=== PATIENT | female | born 1935 | race Caucasian/White ===

== ENCOUNTER 2020-05-13 08:23 | Outpatient (CLI) | payer MEDICARE, SELFPAY ==
--- NOTE | ~2020-05-13 | US_ITS ---
US abdomen complete EXAMINATION: US Abdomen Complete INDICATION: Secondary thrombocytopenia. PROCEDURE: Realtime High Resolution abdomen ultrasound. COMPARISON: Ultrasound dated 09/26/2000 FINDINGS: Gallbladder within normal limits. No gallstones, pericholecystic fluid, gallbladder wall t hickening or biliary dilatation. Common bile duct measures 4 mm. Liver echotexture within normal limits without focal mass. Pancreas within normal limits. Pancreati c tail is obscured by bowel gas. Spleen is unremarkeable. There is an echogenic focus in the right k idney measuring 8 x 7 x 6 mm with internal vascularity. No significant posterior features. Left renal echotexture is normal. Right kidney measures 8.7 cm. Left kidney measures 9.2 cm. Visualized aspects of the aorta and IVC are within normal limits. Portal vein is patent. No sonograph ic Pacheco's sign indicated by the technologist. IMPRESSION: 1: Echogenic right renal mass measuring 8 mm with associated internal vascularity. Correlation with c ontrast-enhanced CT without and with IV contrast recommended. Reviewed, dictated and finalized at location A. IMPRESSION: 1: Echogenic right renal mass measuring 8 mm with associated internal vasculari ty. Correlation with contrast-enhanced CT without and with IV contrast recommen ded.
== END 2020-05-13 08:24 | disposition home or self-care (01) ==
LOC: ANHIMG 08:36
PROVIDERS: PCP Family Medicine; Visit Provider Internal Medicine Hematology & Oncology
DX: D69.59 Other secondary thrombocytopenia (principal)
CPT/HCPCS: 76700

== ENCOUNTER 2020-08-15 08:29 | Outpatient (CLI) | payer MEDICARE, SELFPAY ==
--- NOTE | ~2020-08-15 | DEXA_ITS ---
Bone Density Report Name: Cristiana Rosa I Age: 85 Sex: Female Ethnicity: White Date of : 1935 Indication: postmenopausal; height loss; Referring Provider: Seun Horvath Study: Bone densitometry was performed. Exam Date: August 15, 2020 Accession number: [id number] Bone Density: Region BMD T-score Z-score Classification AP Spine (L1, L2) 0.813 -1.5 1.1 Osteopenia Femoral Neck (Left) 0.543 -2.8 -0.3 Osteoporosis Total Hip (Left) 0.597 -2.8 -0.6 Osteoporosis Total Hip Bilateral Avg 0.607 -2.8 -0.5 Osteoporosis Femoral Neck (Right) 0.610 -2.2 0.3 Osteopenia Total Hip (Right) 0.617 -2.7 -0.4 Osteoporosis World Health Organization criteria for BMD impression classify patients as: Normal (T-score at or above -1.0), Osteopenia (T-score between -1.0 and -2.5), or Osteoporosis (T-score at or below -2.5). 10-year Fracture Risk: FRAX not reported because: Some T-score for Spine Total or Hip Total or Femoral Neck at or below -2.5 Clinical Information Provided by Patient: Has used the following medications: Fosamax (i.e. alendronate), Vitamin D Patient maximum height was 66 Menopause Age: 52 Does not regularly consume dairy products Drinks caffeinated beverages Onset of menses at age 18 Number of children 2 Impression: The patient has osteoporosis, based on the Left Total Hip T-score. Discussion: INCREASED RISK OF FRACTURE. BONE DENSITY IS UNDESIRABLY LOW AT ONE OR MORE SKELETAL SITES, CONSISTENT WITH POSTMENOPAUSAL OSTEOPOROSIS. This patient's lowest T-score meets the World Health Organization's (WHO) criteria for osteoporosis at one or more sites (T-score -2.5 or below). In untreated patients, the risk of osteoporotic fracture increases approximately two-fold for each 1.0 SD decrease in T-score. Low bone density is not the only risk factor for fracture; also consider factors such as patient's age, frailty or poor health, risk of falling, risk of injury, previous osteoporotic fracture, family history of osteoporosis, cigarette smoking, low body weight, etc. Not everyone with low bone mineral density has osteoporosis; osteomalacia and other metabolic bone disorders should also be considered. Patients who have osteoporosis should be evaluated for specific diseases and conditions (secondary causes) that may cause or contribute to bone loss. The [place] [employer] Endocrinologists (AACE) and National Osteoporosis Foundation (NOF) recommend pharmacologic intervention for all postmenopausal women whose T-score is in this range. The patient should follow a healthful lifestyle (good nutrition with adequate calcium and vitamin D, and appropriate weight-bearing exercise). Follow-Up: Consider a repeat BMD and Vertebral Fracture Assessment (VFA) exam in 2 years or sooner if medically necessary, to reassess this pa
--- NOTE | ~2020-08-15 | CT_ITS ---
EXAMINATION: CT abdomen pelvis wo/w con EXAM DATE: 08/15/2020 09:14 INDICATION: Right renal mass. TECHNIQUE: Spiral CT of the abdomen without contrast followed by both abdomen and pelvis with 100 cc intravenous Omnipaque 350. Axial, coronal and sagittal images were reviewed. The dose-length produc t (DLP) for this examination was 403.17 mGy-cm. The exposure was tailored according to patient size (auto mA exposure control), and iterative reconstruction (ASIR) was used as additional dose reduction technique. Correlation is made to abdominal ultrasound 05/13/2020. FINDINGS: The liver, spleen, adrenal glands and pancreas are unremarkable. Gallbladder is unremarkab le. No biliary obstruction. Several right kidney stones up to 4 mm in size, couple of which are cont iguous to each other in one calyx. Correlating with the prior ultrasound, there was some shadowing an d twinkle artifact deep to the echogenic right kidney region which was measured, could've been caused by these 2 stones. There is no hydronephrosis or suspicious renal lesion. There is 6 mm cyst in the superior pole of the right kidney. The uterus is unremarkable. The bladder is collapsed at time of imaging limiting evaluation. There is no retroperitoneal or pelvic lymphadenopathy. There is mild scattered arteriosclerotic disease. The appendix is not positively visualized. There is no pericecal inflammatory change to suggest appe ndicitis. There is mild to moderate sigmoid predominant colonic diverticulosis. There is no adjacent inflammatory change to suggest diverticulitis. The stomach and small bowel are unremarkable. There is expected amount of colonic stool. No free intraperitoneal gas. Heart is normal in size. There are leads from cardiac pacemaker/AICD device. Breast implants. The lung bases are unremarkable. The re is mild to moderate chronic appearing L3 burst fracture with 5 mm retropulsion at the superior end plate. IMPRESSION: 1. Right nephrolithiasis, likely accounting for the abnormal ultrasound finding reported. No suspici ous findings. 2. Mild to moderate colonic diverticulosis. 3. Chronic appearing L3 burst fracture. Reviewed, dictated and finalized at location B. ULAR OFFICER IMPRESSION: 1. Right nephrolithiasis, likely accounting for the abnormal ultrasound findin g reported. No suspicious findings. 2. Mild to moderate colonic diverticulosis. 3. Chronic appearing L3 burst fracture.
[2020-08-15 09:08] LABS: Estimated Glomerular Filt Rate > 60
== END 2020-08-15 08:30 | disposition home or self-care (01) ==
PROVIDERS: PCP Family Medicine; Visit Provider Internal Medicine Hematology & Oncology
DX: N20.0 Calculus of kidney (principal); K57.30 Diverticulosis of large intestine without perforation or abscess without bleeding; M80.08XD Age-related osteoporosis with current pathological fracture, vertebra(e), subsequent encounter for fracture with routine healing; M85.88 Other specified disorders of bone density and structure, other site
CPT/HCPCS: 74178; 77080; Q9967

== ENCOUNTER 2022-09-22 11:27 | Emergency (ER) | payer MEDICARE, SELFPAY ==
[2022-09-22] VITALS (10 sets, daily range): BP systolic 109–160; BP diastolic 60–90; PULSE 60–68; RESP 9–17; TEMP 36.4; O2SAT 97–100
--- NOTE | ~2022-09-22 | CT_ITS ---
EXAMINATION: CT brain wo con DATE: 09/22/2022 17:48 INDICATION: tremor . TECHNIQUE: Computed tomography (CT) of the head was performed without intravenous contrast. The mA wa s adjusted according to patient size. Iterative reconstruction technique was employed. The dose-lengt h product was 605.33 mGy-cm. COMPARISON: 04/04/2013. FINDINGS: No acute intracranial hemorrhage or extra-axial fluid collection. No hydrocephalus, mass, or herniation. No acute ischemic infarct. Unremarkable dural venous sinus attenuation. No acute osseous abnormality. Trace left mastoid fluid, the remaining aerated spaces are clear. Moderate atrophy and chronic white matter change. Atherosclerotic intracranial calcification. Bilater al lens replacements. IMPRESSION: No acute intracranial process. Reviewed, dictated and finalized at location K. A THERAPIST
--- NOTE | ~2022-09-22 | XR_ITS ---
EXAMINATION: XR chest 2V DATE: 09/22/2022 12:50 INDICATION: Weakness. TECHNIQUE: Frontal and lateral views of the chest were obtained. COMPARISON: Chest 2 views 03/18/10, CT abdomen and pelvis 08/15/2020 FINDINGS: There is mild scarring at the lung apices. No pleural effusion or pneumothorax. The heart s ize is normal. There is a left chest pacer with leads in right atrium, right ventricle, and coronary sinus. Pectus excavatum is noted. IMPRESSION: 1. Mild scarring at the lung apices. Reviewed, dictated and finalized at location A. CTOR OF ENROLLMENT
--- NOTE | 2022-09-22 11:52 | ECG_ITS ---
Measurements Intervals Ocate Rate: 60 P: 125 SD: 138 QRS: 134 QRSD: 132 T: 40 QT: 471 QTc: 471 Interpretive Statements ELECTRONIC ATRIAL PACEMAKER ELECTRONIC VENTRICULAR PACEMAKER ABNORMAL RHYTHM ECG NO PREVIOUS ECG AVAILABLE FOR COMPARISON Electronically Signed On 09-22-2022 15:14:10 COPY READER by Víctor Hendricks M.D.
[2022-09-22 17:17] LABS: Hematocrit 40.6 % (37.0-47.0); Hemoglobin 13.5 g/dL (12.0-15.0); Immature Platelet Fraction Pct 5.3 % (0.9-11.2); Mean Corpuscular HGB Conc 33.3 g/dl (32-36); Mean Corpuscular Hemoglobin 32.5 pg (26-34); Mean Corpuscular Volume 97.6 fl (80-100); Mean Platelet Volume 10.5 fl (7.4-10.4); Platelet Count Result 93 k/mm3 (150-375); Red Blood Count 4.16 M/mm3 (4.2-5.4); Red Cell Distribution Width 13.3 % (11.5-14.5); White Blood Count 5.1 K/mm3 (4.5-10.0)
[2022-09-22 17:32] LABS: Alanine Aminotransferase 17 U/L (6-35); Albumin Level 3.8 g/dL (3.5-5.1); Alkaline Phosphatase 40 U/L (38-126); Anion Gap 2 mmol/L (8-16); Aspartate Amino Transferase 26 U/L (14-36); Bilirubin,Total 0.7 mg/dL (0.2-1.3); Blood Urea Nitrogen 11 mg/dL (7-17); Calcium 8.3 mg/dL (8.4-10.2); Carbon Dioxide 32 mmol/L (22-30); Chloride 100 mmol/L (98-107); Estimated CRCL calculation 36 ml/min; Estimated Glomerular Filt Rate > 60; Glucose 99 mg/dL (65-110); Potassium 3.7 mmol/L (3.4-5.0); Sodium 134 mmol/L (137-145)
[2022-09-22 18:11] LABS: Appearance Urine Clear (Clear); Bilirubin Urine 1+ (Negative); Blood Urine 2+ (Negative); Color Urine Yellow (Yellow); Glucose Urine UA Negative (Negative); Ketones Urine 1+ mg/dL (Negative); Leukocyte Esterase Ur 2+ LEU/UL (Negative); Nitrate Urine Negative (Negative); Protein Urine 1+ mg/dL (Negative)
[2022-09-22 18:24] LABS: Mucus Urine Rare /lpf; RBC Urine 21-50 /hpf (0-2); Squamous Epithelial Cell Urine Few /hpf (Few)
[2022-09-22 18:31] LABS: Add Urine Microscopic? YES
[2022-09-22 18:44] LABS: Eosinophils Absolute Manual 0.05 K/mm3 (0.02-0.5); Eosinophils Percent Manual 1 % (0-4); Lymphocytes Absolute Manual 2.29 K/mm3 (1.1-4.5); Monocytes Absolute Manual 0.76 K/mm3 (0.1-0.90); Monocytes Percent Manual 15 % (3-9); Neutrophils Percent Manual 39 % (46-73); Schistocytes None Seen (NORMAL); Total Cells Counted 100
--- NOTE | 2022-09-22 18:47 | ED.GENADULT ---
HPI - General Adult General Chief complaint: Weakness Stated complaint: increased tremors Time Seen by Provider: 09/22/22 16:30 History of Present Illness HPI narrative: 87-year-old female presenting to the emergency department for evaluation of increased tremor. Patient's son states that the patient does have baseline tremor but over the last few days the tremor has increased. Patient has no prior diagnosis of Parkinson's disease. Patient is denying complaints at this time. Patient is resting comfortably and son states that her current tremor is similar to her baseline. Last night when she was eating she was having so much difficulty that he needed to assist her. Related Data Home Medications Medication Instructions Recorded Confirmed Beet 605 mg PO DAILY 08/31/20 11/25/21 fexofenadine-pseudoephedrine ER 1 tablet PO QAM 08/31/20 11/25/21 180 mg-240 mg tablet,ext.release 24 hr ([employer] D 24 Hour) mecobalamin (vitamin B12) 1,000 1,000 mcg PO EVERY OTHER DAY 08/31/20 11/25/21 mcg chewable tablet (B12 Active) sertraline 25 mg tablet 25 mg PO DAILY 08/31/20 11/25/21 turmeric 400 mg capsule 400 mg PO DAILY 08/31/20 11/25/21 ascorbic acid (vitamin C) 500 mg 500 mg PO DAILY 10/19/20 11/25/21 capsule brinzolamide 1 %-brimonidine 0.2 % 1 drp ophthalmic (eye) TID 10/19/20 11/25/21 eye drops,suspension (Simbrinza) donepezil 5 mg tablet 5 mg PO ONCE 10/19/20 11/25/21 famotidine 20 mg tablet 20 mg PO DAILY 10/19/20 11/25/21 olopatadine 0.1 % eye drops 1 drp ophthalmic (eye) BID 10/19/20 11/25/21 (Pataday Twice Daily Relief) zinc sulfate 66 mg tablet (Zinc-15) 66 mg PO DAILY 10/19/20 11/25/21 Allergies Allergy/AdvReac Type Severity Reaction Status Date / Time Cephalosporins Allergy Mild unknown Verified 11/25/21 14:50 metronidazole Allergy Mild unknown Verified 11/25/21 14:50 Penicillins Allergy Mild unknown Verified 11/25/21 14:50 Sulfa (Sulfonamide Allergy Mild unknown Verified 11/25/21 14:50 Antibiotics) Review of Systems Review of Systems: CONSTITUTIONAL: Denies fever, chills, or sweats. EYES: Denies visual changes, redness, or discharge. ENT: Denies rhinorrhea, congestion, sore throat, or otalgia. CARDIOVASCULAR: Denies chest pain, palpitations, or edema. RESPIRATORY: Denies cough or dyspnea. GASTROINTESTINAL: Denies abdominal pain, nausea, vomiting, or diarrhea. GENITOURINARY: Denies dysuria or hematuria. SKIN: Denies rash or itching. MUSCULOSKELETAL: Denies back pain, joint pain, or myalgia. NEUROLOGIC: See HPI PSYCHIATRIC: Denies anxiety or depression. [facility] Family History Family History Mother Family history of heart disease in male family member before age 55 Family history of cardiovascular disease Sibling Family history of malignant neoplasm of breast Family history of lymphoma Family history of malignant neoplasm of ovary Social History Social History (Updated 10/19/20 @ 14:41 by Camryn Rudolph) Social History: Smoking status: Never smoker Second hand tobacco smoke exposure: No Alcohol intake: never Substance use: never Substance use type: does not use Gender identity (if verbalized by the patient): Female Sexual Orientation (if Verbalized by the Patient): Straight or Heterosexual Spiritual care concerns: No (Episcopalian) Exam Narrative: APPEARANCE: Well appearing, no pain, no distress, well-nourished. HEAD: normocephalic, atraumatic. EYES: PERRLA/EOMI, conjunctivae clear. NOSE: Normal no drainage EARS:TMS clear with good light reflex. THROAT: Pharynx clear, no exudate. NECK: Supple. No adenopathy, no masses. RESPIRATORY: Airway patent, respirations nonlabored. Clear to auscultation bilaterally, no rales, rhonchi, wheezing. CARDIOVASCULAR: Regular rate and rhythm without murmurs rubs or gallops. ABDOMINAL: Soft, nontender, nondistended, normal bowel sounds MUSCULOSKELETAL: Moves all extremities. Strength
--- NOTE | 2022-09-22 19:16 | PC.NURSE ---
Assumed care of pt at this time.
[2022-09-22] MEDS: levoFLOXacin 750 MG TABLET PO (19:37)
[2022-09-22 20:15] LABS: Influenza A QL RT-PCR Negative (Negative); Influenza B QL RT-PCR Negative (Negative); SARS-CoV-2 RNA PCR Negative
== END 2022-09-22 19:16 ==
PROVIDERS: Emergency Provider Emergency Medicine; PCP Nurse Practitioner Family
DX: R25.1 Tremor, unspecified (principal); N39.0 Urinary tract infection, site not specified; Z20.822 Contact with and (suspected) exposure to COVID-19
CPT/HCPCS: 36415; 70450; 71046; 80053; 81001; 85025; 85055; 87086; 87636; 93005; 99284; A9270

== ENCOUNTER 2023-03-05 14:07 | Outpatient (CLI) | payer MEDICARE, SELFPAY ==
--- NOTE | ~2023-03-05 | DEXA_ITS ---
Bone Density Report Name: LORRAINE MENDEZ I Age: 88 Sex: Female Ethnicity: White Date of : 1935 Indication: postmenopausal osteoporosis; Referring Provider: TERRI SANTOS Study: Bone densitometry was performed. Exam Date: March 05, 2023 Accession number: [id number] Bone Density: Region BMD T-score Z-score Classification AP Spine(L1, L2) 0.857 -1.1 1.6 Osteopenia Femoral Neck (Left) 0.583 -2.4 0.1 Osteopenia Total Hip (Left) 0.687 -2.1 0.2 Osteopenia Femoral Neck (Right) 0.586 -2.4 0.2 Osteopenia Total Hip (Right) 0.653 -2.4 0.0 Osteopenia Total Hip Mean 0.670 -2.3 0.1 Osteopenia World Health Organization criteria for BMD impression classify patients as: Normal (T-score at or above -1.0), Osteopenia (T-score between -1.0 and -2.5), or Osteoporosis (T-score at or below -2.5). 10-year Fracture Risk(1): Major Osteoporotic Fracture 15% Hip Fracture 5.3% Reported Risk Factors: [place] (), Neck BMD=0.583, BMI=20.6 (1) FRAX(R) Version 3.08. Fracture probability calculated for an untreated patient. Fracture probability may be lower if the patient has received treatment. Previous Exams: Region Exam Age BMD T-score BMD Change BMD Change Date g/cm2 vs Baseline vs Previous AP Spine (L1-L2) 03/05/2023 88 0.857 -1.1 0.044 (5.4%)* 0.044 (5.4%)* 08/15/2020 85 0.813 -1.5 Total Hip(Left) 03/05/2023 88 0.687 -2.1 0.089 (15.0%)* 0.089 (15.0%)* 08/15/2020 85 0.597 -2.8 Total Hip(Right) 03/05/2023 88 0.653 -2.4 0.036 (5.8%)* 0.036 (5.8%)* 08/15/2020 85 0.617 -2.7 *Denotes significance at 95% confidence level, LSC for AP Spine = 0.022 g/cm2, LSC for Total Hip = 0.027 g/cm2 Clinical Information Provided by Patient: Patient maximum height was 65 Menopause Age: 52 No regular weight bearing exercise Does not regularly consume dairy products Onset of menses at age 16 Number of children 2 Impression: The patient has low bone mass, based on the Right Total Hip T-score. The patient has an estimated ten-year risk of hip fracture of 5.3% and an estimated ten-year risk of major fracture of 15%, based on the WHO FRAX algorithm. No significant bone loss was observed. Discussion: BONE DENSITY IS LOW AT ONE OR MORE SKELETAL SITES. THE PATIENT'S BMD AND CLINICAL RISK FACTORS CONTRIBUTE TO THIS PATIENT'S INCREASED RISK OF FRACTURE. This patient's lowest T-score is low at one or more skeletal sites. It meet
== END 2023-03-05 14:08 | disposition home or self-care (01) ==
PROVIDERS: PCP Nurse Practitioner Family; Visit Provider Internal Medicine Hematology & Oncology
DX: M81.0 Age-related osteoporosis without current pathological fracture (principal); M85.89 Other specified disorders of bone density and structure, multiple sites
CPT/HCPCS: 77080

== ENCOUNTER 2024-06-11 08:30 | Emergency (ER) | payer MEDICARE, SELFPAY ==
--- NOTE | ~2024-06-11 | XR_ITS ---
XR lumbar spine 2-3V 06/11/2024 09:58 Indication: Back pain after fall Procedure: 3 views lumbar spine Comparison: No prior studies for comparison. Findings: There is an age-indeterminate superior endplate compression fracture of L3 with approximate ly 20% loss of vertebral body height. There is disc narrowing at L5-S1. There is disc narrowing at L2 -3. There is lower lumbar facet hypertrophy. Impression: 1: Age-indeterminate superior endplate compression fracture of L3. Reviewed, dictated and finalized at location B. Impression: 1: Age-indeterminate superior endplate compression fracture of L3.
--- NOTE | ~2024-06-11 | CT_ITS ---
EXAMINATION: CT brain wo con DATE: 06/11/2024 09:31 INDICATION: Status post fall. Head trauma. TECHNIQUE: Computed tomography (CT) of the head was performed without intravenous contrast. The dose- length product was 605.33 mGy-cm. Automated exposure control and iterative reconstruction technique were employed. COMPARISON: CT dated 09/22/2022 FINDINGS: Generalized brain parenchymal atrophy. There are scattered mild periventricular and subcort ical white matter changes, most likely related to small vessel ischemic disease (microangiopathy). No ventriculomegaly or midline shift. There is intracranial atherosclerosis. No acute infarction, hemor rhage, mass or mass effect. Paranasal sinuses and mastoids are pneumatized. No depressed skull fractu res. Midline sagittal images are unremarkable. IMPRESSION: 1. No acute intracranial abnormality. Reviewed, dictated and finalized at location B.
--- NOTE | ~2024-06-11 | XR_ITS ---
[XR ribs LT 2V w CXR 2V ] INDICATION: Left rib pain after fall TECHNIQUE: Frontal projection of the upper left ribs, frontal projection of the lower left ribs, obli que projection of all the left ribs, frontal inspiratory chest x-ray for interpretation. FINDINGS: There are no displaced rib fractures identified. There are no soft tissue abnormality see n. The lungs are clear. Pacemaker lead battery pack overlies the left upper chest limiting evaluati on for underlying ribs. IMPRESSION: 1:No acute displaced rib fractures. Reviewed, dictated and finalized at location B.
[2024-06-11 08:30] VITALS: BP 149/96; PULSE 71; RESP 14; TEMP 36.4; O2SAT 100
--- NOTE | 2024-06-11 08:55 | PC.NURSE ---
Rn called [facility] and spoke to Mary BRISCOE and requested pt code status and code forms be faxed to this hospital
--- NOTE | 2024-06-11 09:39 | ED.FALL ---
HPI - Fall General Chief Complaint: Fall Stated Complaint: fall Time Seen by Provider: 06/11/24 08:36 History of Present Illness HPI Narrative: Patient is an 89-year-old female who presents ER for evaluation after a fall. Patient has dementia is unable to provide any history. She does report that she has some pain in her low back and her left posterior ribs. There is no bruising to the area. Patient is not on any blood thinners. Related Data Home Medications Medication Instructions Recorded Confirmed buspirone 15 mg tablet 15 mg PO DAILY 06/11/24 06/11/24 carboxymethyl 0.5 %-glycerin 1 See Rx Instructions .Route .COMPLEX 06/11/24 06/11/24 %-polysorb 80 0.5 %-PF eye dropperette (Refresh Optive Ciro-3 (PF)) donepezil 10 mg tablet 10 mg PO HS 06/11/24 06/11/24 montelukast 10 mg tablet 10 mg PO HS 06/11/24 06/11/24 potassium chloride 10 mEq 10 meq PO DAILY 06/11/24 06/11/24 tablet,extended release(part/cryst) propranolol 10 mg tablet 10 mg PO BID 06/11/24 06/11/24 trazodone 50 mg tablet 50 mg PO HS 06/11/24 06/11/24 Allergies Allergy/AdvReac Type Severity Reaction Status Date / Time Cephalosporins Allergy Mild unknown Verified 06/11/24 08:39 metronidazole Allergy Mild unknown Verified 06/11/24 08:39 Penicillins Allergy Mild unknown Verified 06/11/24 08:39 Sulfa (Sulfonamide Allergy Mild unknown Verified 06/11/24 08:39 Antibiotics) cefprozil [From Cefzil] Allergy Unknown Verified 06/11/24 08:58 clindamycin Allergy Unknown Verified 06/11/24 08:58 niacin Allergy Unknown Verified 06/11/24 08:58 raloxifene [From Evista] Allergy Unknown Verified 06/11/24 08:58 Review of Systems Review of Systems: ROS unobtainable: Yes unobtainable due to mental status PMFSH Past Medical History Medical History (Updated 06/11/24 @ 11:20 by Brody Roberson MD) Anxiety Dementia Fuchs' corneal dystrophy Herpes zoster without complication History of atrial fibrillation Neuropathy Pacemaker Spinal stenosis of thoracic region Surgical History Surgical History (Updated 06/11/24 @ 09:41 by Brody Roberson MD) History of prior ablation treatment Family History Family History Mother Family history of heart disease in male family member before age 55 Family history of cardiovascular disease Sibling Family history of malignant neoplasm of breast Family history of lymphoma Family history of malignant neoplasm of ovary Social History Social History (System 11/13/22 @ 14:59 by Wilson Austin) Social History: Smoking status: Never smoker Second hand tobacco smoke exposure: No Alcohol intake: never Substance use: never Substance use type: does not use Occupation/Education: retired Gender identity (if verbalized by the patient): Female Sexual Orientation (if Verbalized by the Patient): Straight or Heterosexual Spiritual care concerns: No (Restorationism) Exam Narrative: GENERAL: Chronically ill-appearing, well-nourished, and in no acute distress. HEAD: Normocephalic, atraumatic. ENT: Mucous membranes moist. NECK: Supple. No midline tenderness of c-spine CHEST: Clear to auscultation. No respiratory distress. HEART: Regular rate and rhythm. Normal peripheral pulses. ABDOMEN: Soft, nontender, nondistended. BACK: Tender palpation right-sided paraspinal musculature of the lumbar spine year old 3. There is also tenderness over the paraspinal musculature/ribs of the thoracic spine at the level of T9. EXTREMITIES: Normal range of motion. No edema. SKIN: Warm, dry, no rash. NEURO: Alert and oriented x1. Course Course Emergency Course: Imaging with age indeterminate vertebral compression fracture of the superior endplate at L3. No rib fracture. Patient resting comfortably. Discharge back to facility. Vital Signs Vital signs: Vital Signs Temperature 97.6 F 06/11/24 08:30 Pulse Rate 71 06/11/24 08:30 Respiratory Rate
[2024-06-11 10:28] VITALS: BP 159/79; PULSE 84; RESP 16; O2SAT 98
--- NOTE | 2024-06-11 11:42 | PC.NURSE ---
Attempted to call report to [facility] at but did not receive an answer
[2024-06-11 11:46] VITALS: BP 120/78; PULSE 85; RESP 15; TEMP 36.7; O2SAT 99
== END 2024-06-11 13:16 ==
PROVIDERS: Emergency Provider Emergency Medicine; PCP Nurse Practitioner Family
DX: S32.030A Wedge compression fracture of third lumbar vertebra, initial encounter for closed fracture (principal); F03.90 Unspecified dementia, unspecified severity, without behavioral disturbance, psychotic disturbance, mood disturbance, and anxiety; F41.9 Anxiety disorder, unspecified; Z95.0 Presence of cardiac pacemaker; W19.XXXA Unspecified fall, initial encounter
CPT/HCPCS: 70450; 71046; 71100; 72100; 99284